=== PATIENT | male | born 1980 | race African-American/Black ===

== ENCOUNTER 2018-10-02 03:52 | Emergency (ER) | payer OTHER ==
[2018-10-02] MEDS ORDERED: HYDROcodone/Acetaminophen 5/325 mg Tablet ONE (04:31)
--- NOTE | 2018-10-02 07:44 | RAD ---
Exam: Left hand 3 views: HISTORY: Injury COMPARISON: None FINDINGS: Possible mild soft tissue swelling at the proximal interphalangeal joint of the middle finger. No evidence for fracture, dislocation, or other significant acute osseous abnormality. IMPRESSION: No significant acute process.
== END 2018-10-02 04:39 | disposition home or self-care (01) ==
LOC: SCSER 03:52
DX: S63.633A Sprain of interphalangeal joint of left middle finger, initial encounter (principal); Z87.891 Personal history of nicotine dependence; W23.0XXA Caught, crushed, jammed, or pinched between moving objects, initial encounter
CPT/HCPCS: 29130

== ENCOUNTER 2018-12-29 23:03 | Emergency (ER) | payer OTHER ==
[2018-12-30] MEDS ORDERED: Ketorolac Tromethamine 60 MG/2 ML VIAL ONE (00:02)
== END 2018-12-30 00:28 | disposition home or self-care (01) ==
LOC: ERS 23:03
DX: G44.209 Tension-type headache, unspecified, not intractable (principal)
CPT/HCPCS: 96372; 99283; J1885

== ENCOUNTER 2019-09-11 09:28 | Emergency (ER) | payer OTHER | END 2019-09-11 10:10 | disposition home or self-care (01) | LOC: ERS 09:28 | DX: J06.9 Acute upper respiratory infection, unspecified (principal) | CPT/HCPCS: 99283 ==

== ENCOUNTER 2020-09-13 22:37 | Emergency (ER) | payer OTHER, SELFPAY | END 2020-09-13 23:18 | disposition home or self-care (01) | LOC: ERS 22:37 | DX: K02.9 Dental caries, unspecified (principal); F17.210 Nicotine dependence, cigarettes, uncomplicated | CPT/HCPCS: 99282 ==

== ENCOUNTER 2021-06-24 22:22 | Emergency (ER) | payer OTHER, SELFPAY ==
[2021-06-25] MEDS ORDERED: Ketorolac Tromethamine 30 MG/ML VIAL ONE (00:04)
== END 2021-06-25 00:30 | disposition home or self-care (01) ==
LOC: ERS 22:22
DX: M62.838 Other muscle spasm (principal); F17.210 Nicotine dependence, cigarettes, uncomplicated
CPT/HCPCS: 96372; 99283; J1885